=== PATIENT | female | born 1935 | race Two or more races ===

== ENCOUNTER 2020-04-07 06:41 | Day surgery (SDC) | payer MEDICARE, BC ==
--- NOTE | 2020-04-06 23:34 | Pre-Procedure Note/Attestation ---
Pre-Procedure Note/Attestation Complete Prior to Procedure Planned Procedure: right - Removal of cataract and placement of intraocular lens, right eye Indications for Procedure Pre-Operative Diagnosis: Cataract, combined, right eye Attestation I attest that I discussed the nature of the procedure; its benefits; risks and complications; and alternatives (and the risks and benefits of such alternatives), prior to the procedure, with the patient (or the patient's legal pharmaceutical specialty representative). I attest that, if there was a reasonable possibility of needing a blood transfusion, the patient (or the patient's legal pharmaceutical specialty representative) was given the [facility] standardized written summary, pursuant to the Patrice Viry Blood Safety Act ([place] Health and Safety Code # 1645, as amended). I attest that I re-evaluated the patient just prior to the surgery and that there has been no change in the patient's H&P, except as documented below: Cory Mendosa MD Apr 06, 2020 23:34
[~2020-04-07] VITALS: Ht 152.4 cm; Wt 86.2 kg
[2020-04-07] VITALS (9 sets, daily range): BP systolic 113–136; BP diastolic 55–78
[~2020-04-07 06:41] MED LIST: BENICAR5 MG ORAL; CRESTOR10 M2 ORAL; LATANOPROST2.5 ML BOTH EYES; MELOXICAM7.5 MG PO; METFORMIN HCL500 M1 ORAL
[2020-04-07] MEDS: Tropicamide 1% Opth 15ml Soln RIGHT EYE SCH ×3 (07:10→07:41)
[2020-04-07] MEDS: Phenylephrine 10% Opth Soln 5ml RIGHT EYE SCH ×3 (07:10→07:42)
[2020-04-07] MEDS: Tetracaine 0.5% Opth 4ml Soln RIGHT EYE SCH ×3 (07:10→07:43)
[2020-04-07] MEDS: Tobradex Opth Susp 2.5ml RIGHT EYE SCH ×3 (07:11→07:42)
[2020-04-07] MEDS: Diclofenac Sod 0.1% Op Soln RIGHT EYE SCH ×3 (07:11→07:41)
[2020-04-07] MEDS: Akten 3.5% 1ml Btl RIGHT EYE SCH ×3 (07:11→07:42)
[2020-04-07] MEDS ORDERED: fentaNYL 100 mcg/2 mL IV ONE (08:38)
--- NOTE | 2020-04-07 08:47 | Anethesia Preoperative Eval ---
Anesthesia Pre-op PMH/ROS General Date of Evaluation: Apr 07, 2020 Time of Evaluation: 08:43 Anesthesiologist: Louis ASA Score: ASA 3 Mallampati Score Class I : Soft palate, uvula, fauces, pillars visible Class II: Soft palate, uvula, fauces visible Class III: Soft palate, base of uvula visible Class IV: Only hard plate visible Mallampati Classification: Class II Surgeon: Navya Diagnosis: L eye cataract Surgical Procedure: Cataract extraction Anesthesia History: none Family History: no anesthesia problems Allergies: Coded Allergies: No Known Allergies (Unverified , 01/06/20) Medications: see eMAR Patient NPO?: Yes Past Medical History Cardiovascular: Reports: HTN; Denies: CAD, [place], valve dz, arrhythmia, other Pulmonary: Denies: asthma, COPD, JIE, other Gastrointestinal/Genitourinary: Reports: GERD; Denies: CRI, ESRD, other Neurologic/Psychiatric: Reports: depression/anxiety; Denies: dementia, CVA, TIA, other Endocrine: Reports: DM; Denies: hypothyroidism, steroids, other HEENT: Reports: cataract (L), cataract (R); Denies: glaucoma, [place] (L), [place] (R), other Hematology/Immune: Reports: anemia - mild; Denies: DVT, bleeding disorder, other Musculoskeletal/Integumentary: Reports: OA; Denies: RA, DJD, DDD, edema, other Other: obesity PMH Narrative: as above PSxH Narrative: See H&P Anesthesia Pre-op Phys. Exam Physician Exam Last Vital Signs Date Time Temp Pulse Resp B/P (MAP) Pulse Ox O2 Delivery O2 Flow Rate FiO2 04/07/20 07:26 Room Air 04/07/20 07:22 97.7 69 18 129/55 95 Constitutional: NAD Neurologic: CN 2-12 intact Cardiovascular: RRR, no M/R/G Respiratory: CTA Gastrointestinal: other - obesity Airway Exam Mallampati Score: Class II MO: limited Neck: short ROM: limited Teeth: missing Dentures: no upper, no lower Anesthesia Pre-op A/P Labs see chart Studies Pre-op Studies: EKG - SR Risk Assessment & Plan Assessment: ASA 3 Plan: MAC Status Change Before Surgery: Grover Weinstein MD Apr 07, 2020 08:47
[2020-04-07] MEDS ORDERED: LR 1000ml 1,000 ML IVLG SCH (09:00)
[2020-04-07] MEDS ORDERED: fentaNYL 100 mcg/2 mL IV PRN (09:00)
[2020-04-07] MEDS ORDERED: prednisoLONE acetate 1% Opth Susp 1ml ONE ×2 (09:01→10:39)
[2020-04-07] MEDS ORDERED: Tetracaine 0.5% Opth 4ml Soln ONE (09:02)
[2020-04-07] MEDS ORDERED: Lidocaine 1% MPF 10mg/ml 5ml ONE (09:22)
--- NOTE | 2020-04-07 09:24 | Pre-Procedure Note/Attestation ---
Pre-Procedure Note/Attestation Complete Prior to Procedure Planned Procedure: right - Removal of cataract and placement of intraocular lens, right eye Procedure Narrative: Removal of cataract and placement of intraocular lens, right eye Indications for Procedure Pre-Operative Diagnosis: Cataract, combined, right eye Attestation I attest that I discussed the nature of the procedure; its benefits; risks and complications; and alternatives (and the risks and benefits of such alternatives), prior to the procedure, with the patient (or the patient's legal agricultural sales representative). I attest that, if there was a reasonable possibility of needing a blood transfusion, the patient (or the patient's legal agricultural sales representative) was given the [place] [facility] standardized written summary, pursuant to the Patrice Viry Blood Safety Act ([place] Health and Safety Code # 1645, as amended). I attest that I re-evaluated the patient just prior to the surgery and that there has been no change in the patient's H&P, except as documented below: Cory Mendosa MD Apr 07, 2020 09:24
[2020-04-07] MEDS ORDERED: Sterile Water Irrig 1000ml IRRIG ONE (09:30)
[2020-04-07] MEDS ORDERED: LR 1000ml ONE (09:30)
[2020-04-07] MEDS ORDERED: NS Irrig 1000ml ONE (09:30)
--- NOTE | 2020-04-07 10:30 | Discharge Instructions ---
Discharge Instructions Discharge Instructions Follow Up Orders Continue preop eye drops Wear shield at all times except to place eye drops Followup in Dr Mendosa's office tomorrow For Congestive Heart Failure Reminder Report to your physician any weight gain of 5 pounds or more in one week. Cory Mendosa MD Apr 07, 2020 10:30
--- NOTE | 2020-04-07 10:33 | Brief Operative Note ---
Immediate Post Operative Note Operative Note Pre-op Diagnosis: Cataract, combined, right eye Procedure: Phaco PC IOL OD Weck Vitrectomy OD Post-op Diagnosis: same as pre-op plus - Vitreous prolapse Surgeon: Priyanka Mendosa MD MS Ingot Stripper: none Anesthesiologist: Dr Myers Anesthesia: local, MAC Specimen: none Complications: none Fluids: see chart Implant(s) used?: Yes - DCBOO 22.5 Cory Mendosa MD Apr 07, 2020 10:33
--- NOTE | 2020-04-07 10:34 | Immediate Post-Op Evaluation ---
Immediate Post-Op Evalulation Immediate Post-Op Evalulation Procedure: R eye cataract extraction with IOL Date of Evaluation: Apr 07, 2020 Time of Evaluation: 10:33 IV Fluids: 500 Blood Products: none Estimated Blood Loss: none Urinary Output: none Blood Pressure Systolic: 128 Blood Pressure Diastolic: 76 Pulse Rate: 64 Respiratory Rate: 20 O2 Sat by Pulse Oximetry: 99 Temperature (Fahrenheit): 97.8 Pain Score (1-10): 1 Nausea: No Vomiting: No Complications none Patient Status: awake, patent, none Hydration Status: adequate Grover Myers MD Apr 07, 2020 10:34
[2020-04-07] MEDS ORDERED: BSS 500ml btl ONE (10:37)
[2020-04-07] MEDS ORDERED: BSS 15ml BTL ONE ×2 (10:38→12:34)
[2020-04-07] MEDS ORDERED: Acetylcholine Injection (OR) ONE (10:38)
[2020-04-07] MEDS ORDERED: Sodium Hyaluronate 10 mg/ml 0.85ml ONE (10:38)
[2020-04-07] MEDS ORDERED: Maxitrol Opth Oint 3.5gm ONE (10:39)
[2020-04-07] MEDS ORDERED: EPINEPHrine 1mg/1ml Amp ONE ×2 (10:39→12:34)
--- NOTE | 2020-04-07 12:30 | Operative Note - Dictated ---
DATE OF OPERATION: 04/07/2020 SURGEON: Cory Mendosa MD. AUDIOVISUAL EQUIPMENT OPERATOR SURGEON: None. ANESTHESIOLOGIST: Grover yMers MD. ANESTHESIA: Local/anesthesia care. PREOPERATIVE DIAGNOSIS: Dense cataract, right eye. POSTOPERATIVE DIAGNOSES: 1. Dense cataract, right eye. 2. Vitreous prolapse, right eye. PROCEDURE: 1. Phacoemulsification of cataract, right eye. 2. Placement of posterior chamber intraocular lens, right eye (model [id number], power 22.5). 3. Weck vitrectomy, right eye. 4. Use of Malyugin ring (7.0 mm). SPECIMENS: None. COMPLICATIONS: None. INDICATIONS FOR SURGERY: The patient has had the painless progressive decrease in visual acuity in the right eye secondary to a cataract. The patient understands the risks of surgery including infection, bleeding, need for further surgery, headache, loss of vision, no improvement in vision, loss of the eye, loss of life, retinal detachment, and understands these risks and elects to proceed with surgery. FINDINGS: The patient had a very dense cataract as well as a miotic pupil. She also had a shallow anterior chamber. After the PCIOL was placed in the capsular bag, there was noted to be a small rent in the posterior capsule at approximately 9 o'clock, but this was very small and that the posterior capsule otherwise remained intact. The anterior capsule also remained intact during the entire procedure. There was a small amount of vitreous coming through that area and that was removed with Weck vitrectomy and the PCIOL remained in the capsular bag and was centered though with the haptics along the approximate 6 o' clock to 12 o' clock meridian to stay away from the posterior rent at 9 o'clock. This was noticed after the IOL was already in the capsular bag. It was very small and far temporally. The vitreous was removed with a Weck vitrectomy and Miochol was injected into the anterior chamber and the pupil came down nicely and round. OPERATIVE NOTE: After informed consent was obtained, the patient was brought into the operative room, placed in supine position. Cardiac and respiratory monitors were attached. A time-out was performed and all criteria were met and everyone in the room agreed. The right eye was then draped and prepped in sterile manner for ocular surgery. A lid speculum was placed in the eye. A 1% lidocaine preservative-free was injected at the approximate 9 o'clock limbus. A conjunctiva peritomy from approximately 8:30 to 9:30 was made and dissected posteriorly. Hemostasis was maintained with bipolar cautery. A 2.6 mm limbal incision was made, centered at approximately 9 o'clock and dissected anteriorly. A paracentesis was made approximately 12 o'clock and Shugarcaine was injected into the anterior chamber followed by Healon. It was noted that the chamber was shallow and Diamox 500 mg IV was given. After the Diamox given, then more Healon was placed into the anterior chamber and the anterior chamber was entered using a 2.6 mm keratome. We waited approximately at least 5 to 10 minutes. At that point, Healon was injected into the anterior chamber and the Malyugin ring was placed (7.0) and hooked onto the pupillary margin at 4 points. The Malyugin ring had been injected into the anterior chamber and hooked down on it at 4 points. Healon was again injected into the anterior chamber and an anterior capsulorrhexis was then performed. This was very nicely rounded, centered and intact. Hydrodissection and hydrodelineation of the lens was then performed. The lens was then phacoemulsified using a divide and conquer four-quadrant technique. Residual cortical material was then aspirated. We had to change the bottle of BSS once during the procedure. After the four-quadrant removal of the nucleus, the inspiration and aspiration of cortical material was then performed. Healon was injected into the anterior chamber and capsular bag. The lens was taken from its and was already pre-loaded and the tip was inserted through the limbal incision and the lens was injected into the capsular bag with the optic and both haptics in the capsular bag. There was noted to be a small rent at this point at the far 9 o'clock area of the posterior capsule. There was small amount of vitreous coming through there and a Weck vitrectomy was performed until the wound was clean. The Healon was aspirated from the anterior chamber and capsular bag and notably very gently from the capsular bag. The rent did not expand at all. Miochol was injected into the anterior chamber and the pupil came down nicely and round. One 10-0 nylon interrupted suture was placed through the 9 o'clock limbus incision and the knot was rotated and buried. The paracentesis wound at 12 o'clock was noted to be leaking and one 10-0 nylon interrupted suture was placed through this also. All knots were rotated and buried and the wounds were checked and found to be watertight. A cyclodialysis spatula was used through the 12 o'clock limbus to try and see if there was any vitreous or iris to the limbal wound and there was not. Again, the pupil came down nicely and round. The anterior chamber was nicely deep. The wounds were again checked and all were found to be watertight. The conjunctiva was then closed with forceps cautery. The lid speculum and drapes were removed from the eye and drops of Pred Forte, TobraDex, and then Maxitrol ointment were applied to the eye followed by a shield. The patient tolerated the procedure well and left the operating room awake, alert, and in stable condition. Cory Mendosa M.D. DR: ALLISON JOB#: [id number] CC:
--- NOTE | 2020-04-07 12:33 | 48 Hour Post Anesthesia Eval ---
Post Anesthesia Evaluation Procedure: R eye cataract extraction with IOL Date of Evaluation: Apr 07, 2020 Time of Evaluation: 12:32 Blood Pressure Systolic: 136 0: 78 Pulse Rate: 64 Respiratory Rate: 20 Temperature (Fahrenheit): 97.6 O2 Sat by Pulse Oximetry: 98 Airway: patent Nausea: No Vomiting: No Pain Intensity: 1 Hydration Status: adequate Cardiopulmonary Status: stable Mental Status/LOC: patient returned to baseline Follow-up Care/Observations: n/a Post-Anesthesia Complications: none Follow-up care needed: ready to discharge Grover Myers MD Apr 07, 2020 12:33
[2020-04-07] MEDS ORDERED: Lidocaine 4% Amp 5ml ONE (12:34)
== END 2020-04-07 12:00 | disposition home or self-care (01) ==
LOC: SUR 06:41
DX: H25.811 Combined forms of age-related cataract, right eye (principal); H43.01 Vitreous prolapse, right eye; I10 Essential (primary) hypertension; K21.9 Gastro-esophageal reflux disease without esophagitis; E11.9 Type 2 diabetes mellitus without complications; D64.9 Anemia, unspecified; M19.90 Unspecified osteoarthritis, unspecified site; E66.9 Obesity, unspecified; Z68.37 Body mass index [BMI] 37.0-37.9, adult
CPT/HCPCS: 66982; 67005; 94003; J0171; J1100; J2704; J3010; J7120; U0004; V2632; 94150